=== PATIENT | female | born 1975 | race Two or more races ===

== ENCOUNTER 2018-09-24 19:50 | Emergency (ER) | payer MEDICARE, OTHER ==
[~2018-09-24] VITALS: Ht 167.6 cm; Wt 90.7 kg
[2018-09-24] MEDS ORDERED: SODIUM CHLORIDE 0.9% 500 ML IV ONE (20:23)
[2018-09-24] MEDS ORDERED: ONDANSETRON HCL 4 MG/2 ML VIAL IV ONE (20:30)
[2018-09-24 22:56] LABS: Basophils # (auto) 0 uL; Basophils % (auto) 0.4 % (0.0-2.0); Eosinophils # (auto) 0 uL; Eosinophils % (auto) 0.3 % (0.0-7.0); Monocytes # (auto) 0.6 uL
[2018-09-24 22:58] LABS: Hematocrit 40.3 % (36.0-46.0); Hemoglobin 13.3 g/dL (12.2-16.2); Lymphocytes % (auto) 10.6 % (10.0-50.0); Mean Corpuscular Volume 81.7 fL (80.0-100.0); Monocytes % (auto) 6.1 % (0.0-12.0); Neutrophils # (auto) 8.2 uL; Neutrophils % (auto) 82.6 % (37.0-80.0); Platelet Count (auto) 291 10^3/uL (140-450); Red Blood Cells 4.93 10^6/uL (4.0-5.20); White Blood Cell 9.9 10^3/uL (4.4-10.8)
[2018-09-24 23:11] LABS: Albumin 3.9 g/dL (3.4-5.0); BUN/Creatinine Ratio 11.9; Calcium 8.6 mg/dL (8.5-10.1); Potassium 3.4 mmol/L (3.5-5.1)
[2018-09-24 23:14] LABS: Bilirubin, Total 0.4 mg/dL (0.2-1.0); Total Protein 8.4 g/dL (6.4-8.2)
[2018-09-25] MEDS: MORPHINE SULFATE 4 MG/ML SYR/VIAL IV ONE ×2 (05:27→06:58)
[2018-09-25] MEDS ORDERED: IOHEXOL 300 MG/ML 100ML BOTTLE IJ ONE (05:42)
[2018-09-25] MEDS ORDERED: LORazepam 2MG/ML-1ML VIAL ONE (06:02)
[2018-09-25] MEDS ORDERED: LORazepam 2MG/ML-1ML VIAL IV ONE (06:15)
[2018-09-25] MEDS ORDERED: HYDROcodone-ACET 5/325MG TAB PO ONE (07:15)
[2018-09-25] MEDS ORDERED: SODIUM CHLORIDE 0.9% 1,000 ML IV ONE (07:30)
[2018-09-25 07:58] LABS: Urine Bacteria NONE SEEN /hpf (None Seen); Urine Blood 1+ /uL (Negative); Urine Mucus FEW (None Seen); Urine Specific Gravity 1.033 (1.001-1.035); Urine WBC 1 /hpf (0 - 5)
[2018-09-25 08:26] VITALS: BP 97/50
== END 2018-09-25 09:40 | disposition home or self-care (01) ==
LOC: EDBD 19:50 → ER 19:50
DX: N83.202 Unspecified ovarian cyst, left side (principal); Z88.2 Allergy status to sulfonamides; Z98.51 Tubal ligation status
CPT/HCPCS: 36415; 51701; 74177; 80053; 81001; 85025; 96361; 96374; 96375; 99284; J2060; J2405; J7030; Q9967